=== PATIENT | female | born 1980 | race Caucasian/White ===

== ENCOUNTER 2019-04-02 04:51 | Observation (INO) ==
[2019-04-02] MEDS ORDERED: NARCAN IV ONE ×2 (06:03→07:51)
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
[2019-04-02 06:39] LABS: BASO# 0.05 X1000 (0.0-0.2); BASO% 0.3 % (0.0-0.8); EOS# 0.13 X1000 (0.0-0.7); EOS% 0.8 % (0.0-10.0); HEMATOCRIT 40.5 % (37.0-47.0); IMM GRAN# 0.04 X1000 (0.0-0.04); IMM GRAN% 0.3 % (0.0-0.5); LYMPH# 1.94 X1000 (1.2-3.4); LYMPH% 12.7 % (20.5-51.1); MCH 29.7 PG (27-31); MCHC 32.1 g/dL (33-37); MCV 92.5 FL (81-99); MONO# 1.24 X1000 (0.11-0.59); MONO% 8.1 % (1.7-9.3); MPV 11.8 FL (7.4-10.4); NEUT# 11.93 X1000 (1.4-6.5); NEUT% 77.8 % (42.2-75.2); PLT 292 X1000 (130-400); RBC 4.38 XMIL (4.2-5.4); RDW 12.2 % (11.5-14.5); WBC 15.33 X1000 (4.8-10.8)
[2019-04-02 06:53] LABS: UR AMPHETAMINES QUAL PRESUMPTIVE POSITIVE (NONE DETECT); UR BARBITUATES QUAL NONE DETECTED (NONE DETECT); UR BENZODIAZEPIN QUAL PRESUMPTIVE POSITIVE (NONE DETECT); UR CANNABINOIDS QUAL PRESUMPTIVE POSITIVE (NONE DETECT); UR COCAINE QUAL NONE DETECTED (NONE DETECT); UR METHADONE QUAL NONE DETECTED (NONE DETECT); UR OPIATES QUAL PRESUMPTIVE POSITIVE (NONE DETECT); UR OXYCODONE QUAL PRESUMPTIVE POSITIVE (NONE DETECT); UR PCP QUAL NONE DETECTED (NONE DETECT)
[2019-04-02 06:55] LABS: AGAP 12; ALB/GLOB RATIO 1.7; ALBUMIN 4.5 g/dL (3.5-5.0); ALKALINE PHOSPHATASE 70 U/L (32-104); BUN 19 mg/dL (8-22); CHLORIDE 103 mmol/L (98-107); COSMO 277; CREATININE 0.8 mg/dL (0.5-0.9); ESTIMATED GFR > 60; GLUCOSE 84 mg/dL (70-104); GOT 24 U/L (10-30); GPT 19 U/L (10-36); POTASSIUM 3.6 mmol/L (3.5-5.1); SODIUM 138 mmol/L (136-145); TCO2 23 mmol/L (25-35); TOTAL BILIRUBIN 0.27 mg/dL (0.20-1.00); TOTAL PROTEIN 7.2 g/dL (6.3-8.3)
[2019-04-02] MEDS ORDERED: NS 1,000 ML IV ONE ×2 (07:51)
[2019-04-02 08:35] LABS: ALLEN TEST NO; BE -0.6 mmoll (-3.0-3.0); BLOOD TYPE ARTERIAL; HCO3-(ACT) 24.4 mmoll (20.0-26.0); O2(CT) 17.1 mL/dL (15.0-23.0); O2HB 96.3 % (95.0-99.0); PCO2(98.6) 43 mmHg (35-45); PO2(98.6) 115 mmHg (60-100); SAMPLE BLOOD; SAO2 99.2 % (95.0-100.0); THB 12.5 g/dL (11.5-17.4); pH(98.6) 7.37 (7.35-7.45)
[2019-04-02 08:36] LABS: MODALITY ROOM AIR
[2019-04-02 09:06] LABS: ACETAMINOPHEN 1.3 ug/mL (10-30); SALICYLATES < 3.00 mg/dL (3-10)
[2019-04-02 09:47] LABS: URINE SOURCE CATH
[2019-04-02 09:51] LABS: BILIRUBIN URINE NEGATIVE (NEGATIVE); BLOOD URINE TRACE (NEGATIVE); COLOR YELLOW; GLUCOSE URINE NEGATIVE (NEGATIVE); KETONE URINE TRACE mg/dL (NEGATIVE); LEUKOCYTES URINE MODERATE (NEGATIVE); NITRITE URINE NEGATIVE (NEGATIVE); PROTEIN URINE TRACE mg/dL (NEGATIVE); SP GRAVITY URINE 1.029; TURBIDITY URINE CLEAR (CLEAR); UROBILINOGEN URINE 3 mg/dL (NORMAL)
[2019-04-02 09:52] LABS: UR EPITHELIAL CELLS <10 /HPF (<10); URINE BACTERIA NEGATIVE /HPF; URINE RBC <10 /HPF (<10); URINE WBC TNTC /HPF (<10)
[2019-04-02] MEDS ORDERED: ROCEPHIN 1 GM in NS 50 ML IV ONE (10:29)
--- NOTE | 2019-04-02 10:53 | Diag Imaging Result Doc PS360 ---
CHEST-PORTABLE - 04/02/2019 INDICATION: od COMPARISON: 01/03/2017 FINDINGS: The lungs are normally expanded and clear. Heart size and mediastinal contours are normal. No pneumothorax or pleural effusion. IMPRESSION: Negative exam. Electronically signed by Guille Sampson 04/02/2019 10:50 AM
--- NOTE | 2019-04-02 11:05 | Diag Imaging Result Doc PS360 ---
CT HEAD/C-SPINE W/O CONTRAST - 04/02/2019 INDICATION: head injury/pain COMPARISON: None FINDINGS: Head CT: The ventricles and sulci are normal in size and contour. No intracranial mass or hemorrhage. The skull is intact. The sinuses, mastoids, and middle ears are clear. Cervical spine: Alignment is anatomic. Vertebral body heights and intervertebral disc spaces are preserved. Neural foramen are patent. Soft tissues are clear. IMPRESSION: Negative exam. This exam was performed using automated exposure control, adjustment of mA or kV according to patient size, and/or use of iterative reconstruction technique Electronically signed by Guille Sampson 04/02/2019 11:02 AM
--- NOTE | 2019-04-02 11:06 | EKG Report ---
Test Performed on : 04/02/2019 09:34:48 AM Test Reason : OD Blood Pressure : / mmHG Vent. Rate : 080 BPM Atrial Rate : 080 BPM P-R Int : 158 ms QRS Dur : 080 ms QT Int : 362 ms P-R-T Axes : 080 068 072 degrees QTc Int : 417 ms Normal sinus rhythm. Cannot rule out Anterior infarct , age undetermined Abnormal ECG When compared with ECG of 08-DEC-2017 05:56, No significant change was found Unconfirmed Result
[2019-04-02] MEDS ORDERED: NS 1,000 ML IV SCH (12:30)
[2019-04-02] MEDS ORDERED: ZOFRAN IV PRN (12:30)
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
[2019-04-02] MEDS ORDERED: TORADOL IV ONE (18:21)
[2019-04-02 18:30] VITALS: BP 106/76
[2019-04-03] MEDS ORDERED: ROCEPHIN 1 GM in NS 50 ML IV SCH (11:00)
== END 2019-04-02 20:31 | disposition left against medical advice (07) ==
LOC: ED 04:51 → EDIPHOLD 04:51
PROVIDERS: ATTEND Emergency Medicine